=== PATIENT | female | born 1990 | race Caucasian/White ===

== ENCOUNTER 2017-08-26 09:28 | Outpatient (CLI) | payer MEDICAID ==
[~2017-08-26] VITALS: Ht 157.5 cm; Wt 78.1 kg
[2017-08-26 09:39] VITALS: Ht 157.5 cm; Wt 78.1 kg
[2017-08-26] MEDS ORDERED: PREN-93 PO (09:39)
[2017-08-26 09:40] VITALS: BP 116/66; PULSE 100; RESP 18
--- NOTE | 2017-08-26 10:21 | TRIAGE ---
OB Triage Datetime Report Generated by CPN: 08/26/2017 10:21 Datetime: 08/26/2017 10:15 Stage of : OB Triage Maternal Assessment Level of Consciousness: Fully Conscious Labor Evaluation Frequency: 4UC/HR Monitor Mode: External Duration (sec)2399: 50-60 Quality: Mild Resting Tone [place]: Relaxed Contraction Comments: PT DENIES FEELING UC'S. Heart Rate FHR Baseline Rate: 135 Monitor Mode: External US Variability: Moderate 6-25 bpm Accelerations: 15X15 Decelerations: None Category: Category I Pain Assessment Pain Scale: 0 Pain Goal: 3 Vaginal Exam Membrane Status: Intact Vaginal Bleeding: None Datetime: 08/26/2017 09:36 Assessment Type: Triage Maternal Assessment Level of Consciousness: Fully Conscious DTR's/Clonus: DTRs 2+; No Clonus Headache: Denies Blurred Vision: No Respiratory Effort: Unlabored; Regular Rhythm; Equal Expansion Breath Sounds, Left: Clear and Equal Breath Sounds, Right: Clear and Equal Nausea/Vomiting: Denies RUQ Epigastric Pain: Denies Lower Extremities Edema: None Degree: None Upper Extremities Edema: None Degree: None Facial Edema: None Fall Risk Assessment History of Falling: (0) No Secondary Diagnosis: (0) No Ambulatory Aid: (0) Bedrest/Nurse Assist IV Therapy: (0) No Gait: (0) Normal/Bedrest/Immobile Mental Status: (0) Oriented to Own Ability Fall Score: 0 Fall Risk Score Definition: No Risk: No action required Datetime: 08/26/2017 09:35 EGA: 30.6 Datetime: 08/26/2017 09:33 Time of Arrival: 08/26/2017 09:23 Arrived By: Ambulatory Arrived From: Home Chief Complaint: PT HERE C/O BLODDY NOSE Movement: Present Contractions: Denies/Absent Rupture of Membranes: Denies Vaginal Discharge: Denies Recent Sexual Intercouse: Denies Abdominal Trauma: Not Applicable Patient Complaints: None Time Provider Notified: 08/26/2017 09:55 Provider Notified: JOSEE Initial Plan: EFM Datetime: 08/26/2017 09:31 Monitor Mode: External Monitor Mode: External US
--- NOTE | 2017-08-26 10:44 | CONS ---
Date/Time of Note Date/Time of Note DATE: 08/26/17 TIME: 10:39 Consultation Date/Type/Reason Admit Date/Time August 26, 2017 OB triage consult. This patient is a 27 years old 3 para 1 1 with estimated date of confinement of October 29, 2017 which makes her 30 weeks and 6 days today. She came complaining of epistaxis, bloody nose, vomited twice. On examination she is a well-developed well-nourished lady near-term her general vital signs are normal with blood pressure of 116/66 pulse rate of 100,, respiration 18 temperature 98.5,, and oxygen saturation at room temperature is 100. Her abdomen is soft no contraction no tenderness heart tone is normal tracing has good variability occasional acceleration no decelerations. Constitutional: No chills, No diaphoresis, No disoriented, No febrile, No improved, No no complaints, No other, No poor po, No requiring IVF, No requiring O2 Eyes: No discharge, No no complaints, No other, No pain, No redness, No visual change ENT: bleeding (Slight vaginal bleeding at this time no active epistaxis noted) , No congestion, No discharge, No dysphagia, No no complaints, No other, No pain, No sore throat Respiratory: No cough, No no complaints, No other, No pain, No pleuritic pain, No shortness of breath, No sputum, No wheezing Cardiovascular: No chest pain, No edema, No lightheadedness, No no complaints, No orthopenea, No other, No palpitations, No paroxysmal nocturnal dyspnea Gastrointestinal: No blood, No constipation, No decreased appetite, No diarrhea , No flatus, No nausea, No no complaints, No other, No pain, No passing stool, No vomiting Genitourinary: other (Due to lack of any contraction no pelvic examination was performed), No bleeding, No discharge, No dysuria, No flank pain, No hematuria, No no complaints Musculoskeletal: No back pain, No bone/joint pain, No neck pain, No no complaints, No other, No restricted range of motion, No swelling Skin: No bruising, No erythema, No laceration, No no complaints, No other, No pruritis, No rash, No skin lesions Neurologic: No confusion, No dizziness, No focal-weakness, No headache, No no complaints, No other, No seizure, No syncope Psychological: No anxiety, No confusion, No depression, No nl mood/affect, No no complaints, No other, No suicidal Additional Comments . Patient was reassured about the condition of the fetus and her and was discharged home with instruction to rest at home. If the nasal normal bleeding happened again or if any other complaint she can come back to triage or to be seen in emergency room. End of dictation Social History Smoking Status: Never smoker Exam/Review of Systems Vital Signs Vitals Vital Signs Date Time Temp Pulse Resp B/P Pulse Ox O2 Delivery O2 Flow Rate FiO2 08/26/17 09:40 98.5 100 18 116/66 100 Room Air JACKIE HARRIS MD Aug 26, 2017 10:44
== END 2017-08-26 10:30 | disposition home or self-care (01) ==
LOC: L-D 09:28 → OBT 09:28
PROVIDERS: ATTEND Obstetrics & Gynecology
DX: O26.893 Other specified pregnancy related conditions, third trimester (principal); Z3A.30 30 weeks gestation of pregnancy; R04.0 Epistaxis
CPT/HCPCS: G0463

== ENCOUNTER 2017-11-02 06:27 | Inpatient (IN) | END 2017-11-05 17:30 | disposition home or self-care (01) | DRG 766 ==